=== PATIENT | male | born 2000 | race African-American/Black ===

== ENCOUNTER 2019-12-31 15:26 | Emergency (ER) | payer OTHER ==
[~2019-12-31] VITALS: Ht 182.9 cm; Wt 77.1 kg
[2019-12-31] MEDS ORDERED: GLUCOTROL5 MG PO (16:58)
[2019-12-31] MEDS ORDERED: GLUCOPHAGE500 MG PO (16:58)
== END 2019-12-31 17:27 | disposition home or self-care (01) ==
LOC: ED 15:26
DX: E11.9 Type 2 diabetes mellitus without complications (principal)
CPT/HCPCS: 80053; 81001; 82010; 82800; 83690; 85025; 96360; 99284-25; J7030